=== PATIENT | female | born 1970 | race Caucasian/White ===

== ENCOUNTER 2023-04-26 12:43 | Emergency (ER) | payer BC, SELFPAY ==
[2023-04-26 12:49] VITALS: BP 136/85
[2023-04-26 13:15] LABS: Urine Albumin Trace (Neg - Trace); Urine Bilirubin 1+ (Negative); Urine Character Clear (Clear); Urine Color Yellow; Urine Glucose Negative (Negative); Urine Ketone 2+ (Negative); Urine Leukocyte Trace (Negative); Urine Nitrite Positive (Negative); Urine Occult Blood 1+ (Negative); Urine Urobilinogen 2+ (Neg - 1+)
[2023-04-26 13:22] LABS: ALT (SGPT) 13 U/L (0-35); AST (SGOT) 16 U/L (14-36); Albumin 4.1 g/dl (3.5-5.0); Alkaline Phosphatase 82 U/L (38-126); Blood Urea Nitrogen 11 mg/dl (7-17); Calcium 9.2 mg/dl (8.4-10.2); Carbon Dioxide 23 mmol/L (22-30); Chloride 104 mmol/L (98-107); Glucose 103 mg/dl (70-99); Potassium 4.1 mmol/L (3.5-5.1); Sodium 138 mmol/L (135-145); Total Bilirubin 1.1 mg/dl (0.2-1.3); Total Protein 6.5 g/dl (6.3-8.2); eGFR > 60.00
[2023-04-26 13:24] LABS: % Basophils 0.3 % (0-2); % Eosinophils 0.3 % (0-6); % Immature Granulocytes 0.4 % (0-0.5); % Lymphocytes 19.8 % (20.5-51.1); % Monocytes 10.9 % (1.7-9.3); % Neutrophils 68.3 % (42.2-75.2); Absolute Eosinophils 0.1 10^3/uL (0-0.7); Absolute Immature Granulocytes 0.1 10^3/uL (0-0.05); Absolute Lymphocytes 2.9 10^3/uL (1.2-3.4); Absolute Monocytes 1.6 10^3/uL (0.1-0.6); Hematocrit 42.8 % (37.0-47.0); Hemoglobin 14.9 g/dL (12.0-16.0); Mean Corp Hgb Conc. 34.8 g/dL (33.0-37.0); Mean Corpuscular Hgb 31.8 pg (27.0-31.0); Mean Corpuscular Volume 91.3 fL (81.0-99.0); Mean Platelet Volume 10.4 fL (7.4-10.4); Nucleated Red Blood Cells % 0 %; Platelet Count 193 10^3/uL (130-400); Red Blood Cell Count 4.69 10^6/uL (4.20-5.40); Red Cell Dist. Width 12.9 % (11.5-14.5); White Blood Cell Count 14.6 10^3/uL (4.8-10.8)
[2023-04-26 13:48] LABS: Urine Amorphous Seen; Urine Mucus Moderate; Urine Squamous Cell >30 /LPF (Few)
[2023-04-26 13:49] LABS: Urine Bacteria Many (Negative)
--- NOTE | 2023-04-26 16:33 | ED.GENMED ---
History of Present Illness
General
Chief Complaint: Urinary Symptoms
Source: patient
Time Seen by Provider: 04/26/23 16:16
Travel History
Have you had any contact with someone who has COVID-19?: No
Do you have any symptoms of coronavirus? Fever > 100 degrees, chills, cough, shortness of breath, sore throat, loss of taste or smell, muscle aches, or headache?: No
History of Present Illness
History of Present Illness:
52-year-old female presents to the emergency room complaining of 'urinary tract infection'. Patient began having the discomfort couple days ago. She went to her family doctor yesterday who started her on Bactrim for suspected UTI. She was also
prescribed Pyridium. Symptoms have not improved. Patient's symptoms are pain in the suprapubic and left lower quadrant which is worse with movement. She has chills but has not taken her temperature. She denies any nausea or vomiting.
Past History
Past History
ED Past Medical History: None
ED Past Surgical History:
Social History
Tobacco: Smoker
Living: with family
Phy Exam
Physical Exam
Physical Exam:
General: Awake, Alert, Oriented X3. No acute distress.
Vitals: unremarkable
Head: Atraumatic
Eyes: Pupils equal, EOMI
Throat: Airway intact, no exudates
Neck: Trachea midline
Lungs: Clear and equal b/l
Heart: Regular rate, no murmurs
Abd: Soft, tender palpation left lower quadrant suprapubic region, No pulsatile mass
Neuro: Nonfocal
Skin: Warm, dry, no rash
Extremities: pulses equal b/l, no edema
Course
Orders/Labs/Results
Orders:
Orders
04/26/23 12:57
Urinalysis Reflex To Culture Urgent
Date Specimen was Collected: 04/26/23
Time Specimen was Collected: 12:49
Urine Microscopic Reflex Cult Urgent
Urine Culture Urgent
VINI Source: U
Specimen Description:
Date Specimen was Collected: 04/26/23
Time Specimen was Collected: 12:49
04/26/23 12:59
Complete Blood Count/With Diff Urgent
Comprehensive Metabolic Panel Urgent
04/26/23 16:32
CT Abd/Pel (IV only)-DH only Urgent
Comment:
Reason For Exam: lower abd pain
0.9% Sodium Chloride 1000 ml [Nss] 1,000 ml IV BOLUS
Ketorolac [Toradol] 15 mg IV NOW STA
04/26/23 20:09
Amoxicillin 875 mg/Clav 125 mg [Augmentin 875 mg/125 mg] 1 tablet PO NOW STA
Abnormal Lab Results
04/26/23 04/26/23
12:57 12:59
WBC 14.6 H 10^3/uL
(4.8-10.8)
MCH 31.8 H pg
(27.0-31.0)
Abs Immat Gran (auto) 0.1 H 10^3/uL
(0-0.05)
Absolute Neuts (auto) 10.0 H 10^3/uL
(1.4-6.5)
Absolute Monos (auto) 1.6 H 10^3/uL
(0.1-0.6)
Lymphocytes % 19.8 L %
(20.5-51.1)
Monocytes % 10.9 H %
(1.7-9.3)
Glucose 103 H mg/dl
(70-99)
Urine Ketones 2+ A
(Negative)
Ur Occult Blood Reflex 1+ A
(Negative)
Urine Nitrite (Reflex) Positive A
(Negative)
Urine Bilirubin 1+ A
(Negative)
Urine Urobilinogen 2+ A
(Neg - 1+)
Leukocyte Esterase Rfl Trace A
(Negative)
Urine RBC 11-15 A /HPF
(0-2)
Urine Bacteria (Reflex) Many A
(Negative)
04/26/23 12:59
04/26/23 12:59
Vital Signs
Initial and Last Documented VS:
Initial Vital Signs
Temp Pulse Resp BP Pulse Ox
98.7 F 91 18 136/85 98
04/26/23 12:49 04/26/23 12:49 04/26/23 12:49 04/26/23 12:49 04/26/23 12:49
Last Documented Vital Signs
Temp Pulse Resp BP Pulse Ox
98.7 F 79 18 146/74 94
04/26/23 12:49 04/26/23 20:12 04/26/23 20:12 04/26/23 20:00 04/26/23 20:00
MDM/Problems Addressed
Differential Diagnosis Includes:
Cystitis, pyelonephritis, diverticulitis, other intra-abdominal infection
MDM/Problems Addressed:
Patient presents with lower abdominal pain. Labs are reassuring. Mildly elevated white blood cell count. CT shows the presence of diverticulitis. We will treat with oral antibiotics as the patient is a arrival, tolerating oral intake and she is
supportive of outpatient management. Patient also noted to have a large stone at the UPJ. She is not having flank pain and her renal function is normal so I do not believe this is causing any obstruction of at this time. However patient
instructed to follow-up with urology for the stone.
*Radiology
Radiology exam reviewed: radiology read reviewed
*Pulse Oximetry
Patient hypoxic: no
*Critical Care Note
Total Time (30-74mins, 75-104mins- exclusive of procedures): Not Applicable
Patient Management
Escalation/DeEscalation of care consider admission/obs:
Considered hospitalization but given patient is taking oral intake, her pain is not severe and she does not have a fever we discussed inpatient versus outpatient management. Patient supportive of outpatient management
ED Attending Note
-
Portions of this chart may have been created with voice recognition software.� Occasional wrong word or��sound alike� substitutions may have occurred due to the inherent limitations of voice recognition software.
Discharge Plan
Departure
Patient Disposition: Home (Routine Discharge)
Date of Disposition: 04/26/23
Time of Disposition: 20:09
Patient with high blood pressure during this ER visit?: Yes
Condition: Good
Discharge Problem:
Acute abdominal pain, Diverticulitis
Instructions: Diverticulitis (DC), BLOOD PRESSURE
Prescriptions:
New
amoxicillin-pot clavulanate 875-125 mg tablet
1 tab PO BID Qty: 14 0RF
ondansetron 4 mg tablet,disintegrating
4 mg PO TID PRN (Reason: nausea and vomiting) Qty: 10 0RF
No Action
hydrocodone-acetaminophen 1 TABLET tablet
1 tab PO Q6HPRN PRN (Reason: Pain) Qty: 10 0RF
tamsulosin 0.4 MG capsule
0.4 mg PO DAILY Qty: 10 0RF
ibuprofen 600 MG tablet
600 mg PO Q6 Qty: 20 0RF
ondansetron 4 MG tablet,disintegrating
4 mg PO TIDPRN PRN (Reason: Nausea) Qty: 10 0RF
Referrals:
Neil Pérez MD [Active] -
Shiva Gasca, [Family Provider] -
Stand Alone Forms: Return to Work
Activity Restrictions/Additional Instructions:
Your CAT scan shows you do have diverticulitis. We will change your antibiotic from Bactrim to Augmentin. You should take the Augmentin twice a day for 1 week. I have also sent a prescription for Zofran which you can take every 8 hours as needed
for nausea and vomiting. Return the emergency room if you develop fever, are not able to keep food or liquids down or you feel you are getting worse in any way. The CAT scan also showed a large stone in the left kidney. This does not appear to be
problematic at this time but definitely should be followed up on by urology.
Interventions
Interventions:
*Risk Screen - Suicide Last Done: 04/26/23 12:49
*General Assessment Last Done: 04/26/23 12:49
*Neglect/Abuse Screening Last Done: 04/26/23 16:39
ED- Fall Risk Assessment Last Done: 04/26/23 16:48
*ED COVID-19 Vaccine History Last Done: 04/26/23 12:49
*Nursing Disposition Last Done: 04/26/23 20:22
ED-Female Genitourinary Assessment Last Done: 04/26/23 16:47
Discharge Date and Time
Discharge Date/Time: 04/26/23 20:27
[2023-04-26 16:38] VITALS: BMI 44.7
[2023-04-26] MEDS: NSS 1000 IV (16:44)
[2023-04-26] MEDS: TORADOL 15 MG IV (16:44)
[2023-04-26 16:46] VITALS: BP 156/77
[2023-04-26 17:00] VITALS: BP 140/77
[2023-04-26 18:00] VITALS: BP 142/73
[2023-04-26 20:00] VITALS: BP 146/74
[2023-04-26] MEDS: AUGMENTIN 875 MG/125 MG 1 TABLET PO (20:17)
== END 2023-04-26 20:27 | disposition home or self-care (01) ==
LOC: EMR 12:43
PROVIDERS: Emergency Medicine; EMERGENCY PHYSICIAN Emergency Medicine; FAMILY PHYSICIAN Family Medicine
DX: K57.32 Diverticulitis of large intestine without perforation or abscess without bleeding (principal); F17.200 Nicotine dependence, unspecified, uncomplicated; R03.0 Elevated blood-pressure reading, without diagnosis of hypertension
CPT/HCPCS: 99285; 96374; 96361; 74177; 80053; 81003; 81015; 85025; 87086; Q9967

== ENCOUNTER 2024-06-11 11:21 | Emergency (ER) | payer BC, SELFPAY ==
[2024-06-11 11:27] VITALS: BP 140/89
[2024-06-11 11:55] LABS: Urine Albumin 2+ (Neg - Trace); Urine Bilirubin Negative (Negative); Urine Character Slightly Cloudy (Clear); Urine Color Yellow; Urine Glucose Negative (Negative); Urine Ketone 3+ (Negative); Urine Leukocyte 1+ (Negative); Urine Nitrite Negative (Negative); Urine Occult Blood 4+ (Negative); Urine Urobilinogen Negative (Neg - 1+)
[2024-06-11 12:12] LABS: Urine Bacteria Few (Negative)
[2024-06-11 12:13] LABS: Urine Red Blood Cell 26-30 /HPF (0-2)
[2024-06-11 13:30] VITALS: BP 119/95
[2024-06-11 13:34] VITALS: BMI 45.3
[2024-06-11 13:35] VITALS: BP 119/95
[2024-06-11 14:25] LABS: % Basophils 0.2 % (0-2); % Eosinophils 0.6 % (0-6); % Immature Granulocytes 0.3 % (0-0.5); % Lymphocytes 22.8 % (20.5-51.1); % Neutrophils 64.1 % (42.2-75.2); Absolute Eosinophils 0.1 10^3/uL (0-0.7); Absolute Lymphocytes 2.5 10^3/uL (1.2-3.4); Absolute Monocytes 1.3 10^3/uL (0.1-0.6); Absolute Neutrophils 6.9 10^3/uL (1.4-6.5); Hematocrit 41.9 % (37.0-47.0); Hemoglobin 14.4 g/dL (12.0-16.0); Mean Corp Hgb Conc. 34.4 g/dL (33.0-37.0); Mean Corpuscular Hgb 32.2 pg (27.0-31.0); Mean Corpuscular Volume 93.7 fL (81.0-99.0); Mean Platelet Volume 10.5 fL (7.4-10.4); Nucleated Red Blood Cells % 0 %; Platelet Count 179 10^3/uL (130-400); Red Blood Cell Count 4.47 10^6/uL (4.20-5.40); Red Cell Dist. Width 13.1 % (11.5-14.5); White Blood Cell Count 10.8 10^3/uL (4.8-10.8)
[2024-06-11 14:42] LABS: ALT (SGPT) 18 U/L (0-35); AST (SGOT) 18 U/L (14-36); Albumin 3.9 g/dl (3.5-5.0); Alkaline Phosphatase 69 U/L (38-126); Blood Urea Nitrogen 16 mg/dl (7-17); Calcium 9.4 mg/dl (8.4-10.2); Carbon Dioxide 28 mmol/L (22-30); Chloride 107 mmol/L (98-107); Estimated Creatinine Clearance > 125 ml/min; Glucose 89 mg/dl (70-99); Potassium 4.1 mmol/L (3.5-5.1); Sodium 141 mmol/L (135-145); Total Bilirubin 0.7 mg/dl (0.2-1.3); Total Protein 6.2 g/dl (6.3-8.2); eGFR > 60.00
--- NOTE | 2024-06-11 17:22 | ED.GENMED ---
History of Present Illness
General
Chief Complaint: Abdominal Symptoms
Source: patient and spouse
Exam Limitations: none
Time Seen by Provider: 06/11/24 12:20
Nursing documentation reviewed up to this point in time: agreed with
History of Present Illness
History of Present Illness:
53-year-old female presenting to the emergency department today with concerns of lower abdominal pain starting yesterday worsening today mainly to the left lower quadrant. Denies nausea vomiting diarrhea. No fevers chest pain or shortness of
breath.
Past History
Past History
ED Past Medical History: None
ED Past Surgical History:
Social History
Tobacco: Smoker
Living: with family
Review of Systems
Review of Systems
Allergies reviewed?: Yes
All Other Systems: ROS reviewed and negative except as documented in HPI and ROS
Phy Exam
Physical Exam
Physical Exam:
GENERAL: Alert , in no apparent distress
EYE: pupils equal and reactive
NECK: Supple, no significant adenopathy.
ENT: o/p clr, mmm.
CARDIAC: Regular rate and rhythm .
LUNGS: Clear breath sounds bilaterally, no acute respiratory distress, no wheezes/rales/rhonchi
ABDOMEN: Mild tenderness to the left lower quadrant otherwise soft abdomen.
NEUROLOGICAL: Alert and oriented, no focal neuro deficits
SKIN: Warm and dry, skin intact.
MUSCULOSKELETAL: No edema, well perfused.
PSYCH: Normal and appropriate interaction.
Sepsis
Sepsis Screening
Sepsis Assessment: Sepsis Ruled Out
Sepsis Screen
Sepsis Screen: Sepsis Ruled Out
Date: 06/11/24
Time: 17:28
Course
Orders/Labs/Results
Orders:
Orders
06/11/24 11:34
Urinalysis Reflex To Culture Urgent
Date Specimen was Collected: 06/11/24
Time Specimen was Collected: 11:30
Urine Microscopic Reflex Cult Urgent
Urine Culture Urgent
VINI Source: U
Specimen Description:
Date Specimen was Collected: 06/11/24
Time Specimen was Collected: 11:30
06/11/24 12:42
CT Abd/Pel (IV only)-DH only Urgent
Comment:
Reason For Exam: llq pain flank pain
06/11/24 13:30
Complete Blood Count/With Diff Urgent
Comprehensive Metabolic Panel Urgent
06/11/24 17:20
Amoxicillin 875 mg/Clav 125 mg [Augmentin 875 mg/125 mg] 1 tablet PO NOW STA
Abnormal Lab Results
06/11/24 06/11/24
11:34 13:30
MCH 32.2 H pg
(27.0-31.0)
MPV 10.5 H fL
(7.4-10.4)
Absolute Neuts (auto) 6.9 H 10^3/uL
(1.4-6.5)
Absolute Monos (auto) 1.3 H 10^3/uL
(0.1-0.6)
Monocytes % 12.0 H %
(1.7-9.3)
Creatinine 0.5 L mg/dL
(0.6-1.0)
Total Protein 6.2 L g/dl
(6.3-8.2)
Urine Ketones 3+ A
(Negative)
Ur Occult Blood Reflex 4+ A
(Negative)
Leukocyte Esterase Rfl 1+ A
(Negative)
Urine RBC 26-30 A /HPF
(0-2)
Urine Bacteria (Reflex) Few A
(Negative)
Urine Albumin (Reflex) 2+ A
(Neg - Trace)
06/11/24 13:30
06/11/24 13:30
Vital Signs
Initial and Last Documented VS:
Initial Vital Signs
Temp Pulse Resp BP Pulse Ox
98.3 F 95 22 140/89 93
06/11/24 11:27 06/11/24 11:27 06/11/24 11:27 06/11/24 11:27 06/11/24 11:27
Last Documented Vital Signs
Temp Pulse Resp BP Pulse Ox
97.6 F 74 21 119/95 95
06/11/24 13:35 06/11/24 13:35 06/11/24 13:35 06/11/24 13:35 06/11/24 13:35
MDM/Problems Addressed
MDM/Problems Addressed:
53-year-old female presenting to the emergency department today with concerns of left lower quadrant abdominal pain worsening since yesterday. On arrival vital signs are normal patient no distress labs unremarkable. Patient found to have described
severe diverticulitis without signs of complication or perforation. She was reassessed and claimed that she would like to go home that was all for her to stay in the hospital for IV antibiotics and monitoring. She will be started on oral
antibiotics and advised to slowly progress diet over the next few days. She was given strict return precautions for worsening symptoms.
*Critical Care Note
Total Time (30-74mins, 75-104mins- exclusive of procedures): Not Applicable
ED Attending Note
-
Portions of this chart may have been created with voice recognition software.� Occasional wrong word or��sound alike� substitutions may have occurred due to the inherent limitations of voice recognition software.
Discharge Plan
Departure
Patient Disposition: Home (Routine Discharge)
Date of Disposition: 06/11/24
Time of Disposition: 17:25
Patient with high blood pressure during this ER visit?: No
Condition: Good
Covid-19: Not Applicable
Discharge Problem:
Diverticulitis
Instructions: Diverticulitis
Prescriptions:
New
amoxicillin-pot clavulanate 875-125 mg tablet
1 tab PO BID 7 Days Qty: 14 0RF
No Action
hydrocodone-acetaminophen 1 TABLET tablet
1 tab PO Q6HPRN PRN (Reason: Pain) Qty: 10 0RF
tamsulosin 0.4 MG capsule
0.4 mg PO DAILY Qty: 10 0RF
ibuprofen 600 MG tablet
600 mg PO Q6 Qty: 20 0RF
ondansetron 4 MG tablet,disintegrating
4 mg PO TIDPRN PRN (Reason: Nausea) Qty: 10 0RF
amoxicillin-pot clavulanate 875-125 mg tablet
1 tab PO BID Qty: 14 0RF
ondansetron 4 mg tablet,disintegrating
4 mg PO TID PRN (Reason: nausea and vomiting) Qty: 10 0RF
Referrals:
Shiva Gasca, [Family Provider] -
Sixto Alfred MD [Active] - Next open appointment
Stand Alone Forms: Return to Work
Activity Restrictions/Additional Instructions:
You came to the emergency department today with concerns of lower abdominal pain. You are found to have diverticulitis. Please take Augmentin twice daily for the next 7 days as well as Motrin for discomfort. Please slowly progress your diet over
the next 2 days and follow-up closely with GI. Return for any worsening, new or concerning symptoms.
Interventions
Interventions:
*Risk Screen - Suicide Last Done: 06/11/24 11:27
*General Assessment Last Done: 06/11/24 11:27
*Neglect/Abuse Screening Last Done: 06/11/24 11:27
*ED- Fall Risk Assessment Last Done: 06/11/24 13:35
*ED COVID-19 Vaccine History Last Done: 06/11/24 13:35
UM-Apfris-Tgririywpe Assessment Last Done: 06/11/24 13:35
Discharge Date and Time
Print Language: TANZANIAN
[2024-06-11] MEDS: AUGMENTIN 875 MG/125 MG 1 TABLET PO (17:31)
[2024-06-11 17:37] VITALS: BP 136/71
== END 2024-06-11 17:39 | disposition home or self-care (01) ==
LOC: EMR 11:21
PROVIDERS: Emergency Medicine; Physician Assistant; EMERGENCY PHYSICIAN Emergency Medicine; FAMILY PHYSICIAN Family Medicine
DX: K57.92 Diverticulitis of intestine, part unspecified, without perforation or abscess without bleeding (principal); F17.200 Nicotine dependence, unspecified, uncomplicated
CPT/HCPCS: 99284; 74177; 80053; 81003; 81015; 85025; 87086; Q9967